=== PATIENT | male | born 1985 | race Caucasian/White ===

== ENCOUNTER 2020-03-14 23:33 | Emergency (ER) | payer OTHER ==
[~2020-03-14] VITALS: Ht 167.6 cm; Wt 85.0 kg
[2020-03-14 23:35] VITALS: BP 164/78
[2020-03-14] MEDS ORDERED: FLUORESCEIN OPHTHALMIC 1 MG STRIP ONE (23:42)
[2020-03-14] MEDS ORDERED: PROPARACAINE OPHTH 0.5%, 15ML ONE (23:42)
[2020-03-15] MEDS ORDERED: FLUORESCEIN/BENOXINATE 5 ML DROPS OP ONE
[2020-03-15] MEDS ORDERED: PROPARACAINE OPHTH 0.5%, 15ML EACHEYE ONE
[2020-03-15] MEDS ORDERED: FLUORESCEIN OPHTHALMIC 1 MG STRIP EACHEYE ONE (00:30)
[2020-03-15] MEDS ORDERED: PLEASE ENTER ALLERGIES MC SCH (00:30)
--- NOTE | 2020-03-15 02:02 | NUR ---
AWAITING OPTHO CONSULT
== END 2020-03-15 03:03 | disposition home or self-care (01) ==
LOC: ED 03-15 00:37
DX: H10.213 Acute toxic conjunctivitis, bilateral (principal); E11.9 Type 2 diabetes mellitus without complications; Z77.098 Contact with and (suspected) exposure to other hazardous, chiefly nonmedicinal, chemicals
CPT/HCPCS: 99283